=== PATIENT | female | born 1945 | race Caucasian/White ===

== ENCOUNTER → 2016-08-15 | Outpatient (CLI) | payer OTHER ==
[2016-08-15 09:51] LABS: BASOPHILS # (AUTO) 0.04 10*3/UL; BASOPHILS % (AUTO) 0.9 % (0-1); EOSINOPHILS % (AUTO) 2.9 % (0-8); HEMATOCRIT 41.7 % (37.0-47.0); HEMOGLOBIN 13.8 g/dL (12.0-16.0); IMM GRAN % (AUTO) 0.5 % (0-5); IMM GRAN# (AUTO) 0.02 10*3/UL; LYMPHOCYTES % (AUTO) 13.5 % (10-50); MEAN CORPUSCULAR HEMOGLOBIN 28.6 PG (27-31); MEAN CORPUSCULAR HGB CONC 33.1 g/dL (33-37); MEAN PLATELET VOLUME 9.2 FL (7.4-12.2); MONOCYTES # (AUTO) 0.26 10*3/UL (0.3-0.8); MONOCYTES % (AUTO) 5.9 % (5-15); NEUTROPHILS # (AUTO) 3.38 10*3/UL; NEUTROPHILS % (AUTO) 76.3 % (50-80); RDW COEFFICIENT OF VARIATION 15.5 % (11.5-14.5); RED BLOOD COUNT 4.82 10^6/uL (4.20-5.40); WHITE BLOOD COUNT 4.43 10^3/uL (4.8-10.8)
[2016-08-15 10:04] LABS: PLATELET MORPHOLOGY COMMENT NORMAL MORPHOLOGY (NORM)
[2016-08-15 10:39] LABS: ASPARTATE AMINO TRANSFERASE 26 IU/L (8-39); BILIRUBIN,TOTAL 0.8 mg/dL (0.3-1.2); BLOOD UREA NITROGEN 13 mg/dL (7-22); BUN/CREATININE RATIO 18.57 (6-20); CALCIUM 9.2 mg/dL (8.7-10.7); CHLORIDE 105 meq/L (98-112); CREATININE 0.7 mg/dL (0.50-1.20); GLUCOSE 88 mg/dL (78-110); POTASSIUM 4.6 meq/L (3.8-5.2); SODIUM 142 meq/L (135-145)
[2016-08-15 10:40] LABS: TOTAL PROTEIN 7.2 g/dL (6.1-8.0)
== END ==
LOC: LAB 09:30
PROVIDERS: ATTEND Internal Medicine
DX: C83.8 Other non-follicular lymphoma (principal)
CPT/HCPCS: 36415; 80053; 83615; 85025

== ENCOUNTER → 2016-11-09 | Outpatient (CLI) | payer OTHER | LOC: MMPC 09:00 | PROVIDERS: ATTEND Physician Assistant Medical | DX: H57.8 Other specified disorders of eye and adnexa (principal) | CPT/HCPCS: 99213; G0463 ==

== ENCOUNTER 2016-11-10 10:45 | Emergency (ER) | payer OTHER ==
[2016-11-10] MEDS ORDERED: Sodium Chloride 0.9% 1,000 ML PRIMARY IV ONE (11:01)
[2016-11-10] MEDS ORDERED: NORMAL SALINE 10 ML SYRINGE FLUSH IVP PRN (11:01)
[2016-11-10] MEDS ORDERED: ceFAZolin Inj 1gm (Premix) 1 GM in Dextrose 1 BAG IV ONE (11:06)
[2016-11-10] MEDS ORDERED: MORPHINE SULFATE 4 MG/1 ML IVP ONE (11:27)
[2016-11-10 11:45] LABS: HEMATOCRIT 38.5 % (37.0-47.0); HEMOGLOBIN 12.6 g/dL (12.0-16.0); MEAN CORPUSCULAR HEMOGLOBIN 28.4 PG (27-31); MEAN CORPUSCULAR HGB CONC 32.7 g/dL (33-37); MEAN CORPUSCULAR VOLUME 86.9 FL (81-99); MEAN PLATELET VOLUME 9.3 FL (7.4-12.2); RED BLOOD COUNT 4.43 10^6/uL (4.20-5.40)
[2016-11-10 11:54] VITALS: RESP 18; TEMP 98.1
[2016-11-10 11:55] LABS: BLOOD UREA NITROGEN 36 mg/dL (7-22); BUN/CREATININE RATIO 16.36 (6-20); CALCIUM 8.6 mg/dL (8.7-10.7); SERUM ALBUMIN 3.6 g/dL (3.5-4.8)
[2016-11-10 12:23] LABS: PLATELET MORPHOLOGY COMMENT SEE COMMENTS (NORM); RBC MORPHOLOGY COMMENT SEE COMMENTS (NORM); WBC MORPHOLOGY COMMENT SEE COMMENTS (NORM)
[2016-11-10 12:24] LABS: BAND NEUTROPHILS % 4 % (0-10); LYMPHOCYTES % (MANUAL) 73 % (10-50); MONOCYTES % (MANUAL) 21 % (0-12); NEUTROPHILS % (MANUAL) 0 % (50-80)
[2016-11-10 12:25] LABS: BASOPHILS % (MANUAL) 2 % (0-1); EOSINOPHILS % (MANUAL) 0 % (0-8); METAMYELOCYTES % 0 %; MYELOCYTES % 0 %; PROMYELOCYTES % 0 %
[2016-11-10] MEDS ORDERED: Ertapenem Inj 1 GM in Sodium Chloride 0.9% 100 ML IV ONE (12:34)
[2016-11-10] MEDS ORDERED: ONDANSETRON 4 MG/2 ML VIAL ONE (12:47)
--- NOTE | 2016-11-10 12:51 | DI ---
HISTORY: Right-sided periorbital cellulitis. Renal insufficiency. TECHNIQUE: Unenhanced images of the IAC/orbits were obtained and submitted for interpretation. FINDINGS: There is preseptal right periorbital soft tissue swelling. The right globe is intact. Th e extraocular muscles and optic nerve appear intact. The orbital fat is not effaced. The right supe rior pulmonary vein is slightly prominent. The paranasal sinuses are well-aerated. There is modest mucosal thickening. The mandible is intact. The mastoid air cells are well-aerated. The zygomatic arches, and pterygoid plates are intact. T here is no destructive osseous abnormalities. The left periorbital and orbit are grossly unremarkable. The visualized intracranial parenchyma appears grossly unremarkable. There is no orbital emphysema or orbital abscess. No specific evidence of endophthalmitis, although this is largely clinical. IMPRESSION: 1. Preseptal right periorbital soft tissue swelling. 2. Slightly prominent pulmonary vein. Correlation with contrast-enhanced images with attention to th e cavernous sinus is recommended.
[2016-11-10] MEDS ORDERED: ONDANSETRON 4 MG/2 ML VIAL IVP ONE (12:59)
[2016-11-10 13:06] LABS: VENOUS PH 7.32 (7.32-7.42)
--- NOTE | 2016-11-10 13:07 | PDOC ---
General Adult HPI - General Chief Complaint: Eye Problem / Injury Stated Complaint: reddness swelling right eye Date Seen by Provider: 11/10/16 Time Seen by Provider: 10:50 Source: POSITIVE: Patient, Spouse Exam Limitations: POSITIVE: No limitations Nurse's Notes Reviewed & Considered: Yes - History of Present Illness Initial Comment: , Approximately 2 days ago she scratched the lateral aspect of her face near the lateral canthus with her fingernail. She states that she fell recent quickly thereafter began to develop some right periorbital swelling. She went to the walk-in clinic yesterday and was seen by a physician educational program assistant, who prescribed Bactrim DS. Her condition continued to worsen. She states that yesterday she had a fever of 102. She is brought to the emergency room by private auto. Past medical history is significant in that she has a history of lymphoma, diagnosed approximately 2 years ago. She was taking chemotherapy up until this past March. Her oncologist is Dr. Child in [place].. She has a left subclavian port. Her right eye is almost swollen shut, but she does not complain of any ocular pain with eye movement. Have you received a tetanus shot in the past 10 years?: Unknown Body Location Affected: REPORTS: Face (Right side of face) Timing: REPORTS: Abrupt, Getting Worse Duration: >24 hours (Approximately 2-1/2 days [employer]) Severity: Moderate Quality: REPORTS: "Pain" (Over right side of face) Context: REPORTS: Recent Trauma (Had onset of illness she scratched her face on the right side near her lateral canthus) Modifying Factors: improves with: Palpation Similar Symptoms Previously: No Recent Care Received: REPORTS: Recently Seen, Treated by MD (Seen in walk-in clinic yesterday; prescribed Bactrim by mouth) Any Prior Injuries Related to Current Complaint?: Yes (scratched right side of face as above) - Patient Home Medications Home Medications: Home Medications Esomeprazole Magnesium [Nexium] 1 tab-cap ORAL DAILY #90 capsule 06/12/16 Furosemide 1 tab-cap PO DAILY PRN #60 tab 06/12/16 Gabapentin 1 cap PO ASDIR #240 cap 06/12/16 Meloxicam 1 tab PO DAILY #90 tab 06/12/16 Potassium Chloride [Klor-Con M20] 1 tab-cap PO QD PRN #60 tab 06/12/16 - Patient Allergies Allergies/Adverse Reactions: Allergies Allergy/AdvReac Type Severity Reaction Status Date / Time amoxicillin trihydrate Allergy HIVES Verified 11/10/16 11:54 [From Augmentin] Penicillins Allergy HIVES Verified 11/10/16 11:54 potassium clavulanate Allergy HIVES Verified 11/10/16 11:54 [From Augmentin] Past Medical History - heen HEENT History: Denies History Cardiovascular History: Denies History Respiratory History: Denies History Gastrointestinal History: Denies History Genitourinary History: Denies History Endocrine History: Denies History Musculoskeletal History: Arthritis Prosthesis or Implant: No Neurological History: Other (please comment) Additional Neurological History: FIBROMYALGIA Blood Disorders: Denies History Psychiatric History: Denies History History of Sexually Transmitted Diseases: No Cancer History: Denies History In Past Year Been Physically Harmed or Verbally Threatened: No History of MDRO: No History of Other Communicable Diseases: No Tobacco Use: Former Smoker Alcohol Use: Rarely Substance Use Type: None Previous Surgical History: Yes Type / Date of Surgery: R HYST, APPY, back surgery Anesthesia Reactions: No Malignant Hyperthermia: No Significant Family History: No pertinent family hx Past Medical History Reviewed: Reviewed - No Changes ROS - Limitations ROS Limitations: No Limitations Constitution: REPORTS: Fever (Last night according to patient) Cardiovascular: REPORTS: Denies Cardiac Symptoms Respiratory: REPORTS: Denies Resp Symptoms Neurological: REPORTS: Denies Neuro Symptoms Gastrointestinal: REPORTS: Denies GI Symptoms Endocrine: REPORTS: Denies Symptoms Musculoskeletal: REPORTS: Denies MS Symptoms Genitourinary: REPORTS: Denies Symptoms Eyes: REPORTS: Other (Periorbital swelling tenderness and redness) ENT: REPORTS: Denies Symptoms Skin: REPORTS: Other (Right periorbital cellulitis extending down face. Area of ecchymosis lateral aspect right upper eyelid) Lympathic: REPORTS: Denies Lympathic Symptoms Immunologic: POSITIVE: Denies Symptoms Psychiatric: POSITIVE: Denies Psych Symptoms General Adult Exam - General Appearance General Appearance: POSITIVE: Alert, Cooperative, No Acute Distress, No Evidence of Trauma - HEENT HEENT: POSITIVE: Head Inspection Nml, Eyes Inspection Nml, Ears Inspection Nml, Nose Inspection Nml, Oral/Dental Inspect. Nml, Pharynx Inspect. Nml, PERRL, EOMI , Other (Patient has prominent right periorbital swelling. Lids could be opened up enough to visualize the eye, however. Anterior chambers are clear. No apparent endophthalmitis. External ocular movements are intact. Some conjunctival erythema.) - Pupils Pupil Size: 3 mm: Bilateral (PERRLA) - Neck Neck: POSITIVE: Normal Inspection, Thyroid Normal - Respiratory Respiratory: POSITIVE: No Respiratory Distress, Breath Sounds Normal, Chest Non- Tender - Cardiovascular Cardiovascular: POSITIVE: Regular Rate & Rhythm, No Murmur, No Gallop, PMI Normal Peripheral Pulses: Radial (R): 2+, Radial (L): 2+ - Abdomen Abdomen: Soft: (All Quadrants), Normal Bowel Sounds: (All Quadrants), Denies Tenderness: (All Quadrants), No Splenomegaly: (All Quadrants), No Hepatomegaly: (All Quadrants), No Guarding: (All Quadrants), No Rebound: (All Quadrants), No Palpable Pulse: (All Quadrants), No Palpabale Mass: (All Quadrants), No Distention: (All Quadrants), No Rigidity: (All Quadrants) - Back Back: POSITIVE: Normal Inspection - Skin Skin: POSITIVE: Warmth, Erythema, Other (Patient has a prominent right periorbital and facial cellulitis.) - Extremities Extremity: Non-Tender: (All Extremities), Normal ROM: (All Extremities), Normal Inspection: (All Extremities) - Neurological / Psychological Neurological: 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 Lab Results Reviewed: Yes Lab Results:: Laboratory Results 11/10/16 Range/Units 11:28 WBC 1.11 L* (4.8-10.8) 10^3/uL RBC 4.43 (4.20-5.40) 10^6/uL Hgb 12.6 (12.0-16.0) g/dL Hct 38.5 (37.0-47.0) % MCV 86.9 (81-99) FL MCH 28.4 (27-31) PG MCHC 32.7 L (33-37) g/dL RDW Std Deviation 47.1 (39-50) fL RDW Coeff of Nina 14.9 H (11.5-14.5) % Plt Count 256 (140-350) 10*3/uL MPV 9.3 (7.4-12.2) FL Neutrophils % (Manual) 0 L (50-80) % Band Neutrophils % 4 (0-10) % Lymphocytes % (Manual) 73 H (10-50) % Monocytes % (Manual) 21 H (0-12) % Eosinophils % (Manual) 0 (0-8) % Basophils % (Manual) 2 H (0-1) % Metamyelocytes % 0 % Myelocytes % 0 % Promyelocytes % 0 % Blast Cells 0 (0-1) % WBC Morphology Comment See comments (NORM) Plt Morphology Comment See comments (NORM) RBC Morph Comment See comments (NORM) Sodium 134 L (135-145) meq/L Potassium 4.4 (3.8-5.2) meq/L Chloride 96 L (98-112) meq/L Carbon Dioxide 21 L (23-33) meq/L Anion Gap 17 (5-20) BUN 36 H (7-22) mg/dL Creatinine 2.2 H (0.50-1.20) mg/dL Estimated GFR [facility] Aid BUN/Creatinine Ratio 16.36 (6-20) Glucose 134 H (78-110) mg/dL Calculated Osmolality 287.0 (267-292) mOsm/kg Lactic Acid 4.4 H (0.70-2.10) MMOL/L Calcium 8.6 L (8.7-10.7) mg/dL Total Bilirubin 1.1 (0.3-1.2) mg/dL AST 12 (8-39) IU/L ALT 18 (9-52) IU/L Alkaline Phosphatase 81 (38-126) IU/L Total Protein 6.6 (6.1-8.0) g/dL Albumin 3.6 (3.5-4.8) g/dL Globulin 3.0 (2.50-4.10) g/dL Albumin/Globulin Ratio 1.20 L (1.3-2.0) mg/g - Patient's Progress Pain Medication Addressed: POSITIVE: Yes (Morphine 4 mg IV) School/Work Release Addressed: POSITIVE: Not Applicable Re-Examine Time: 12:05 Re-Examine Comment: Blood pressure 112/48 after liter of normal saline. Patient originally given a gram of Ancef IV after blood cultures were drawn; 1 g of Invanz ordered. Re-Examine Time:: 12:50 Re-Examine Comment: Case discussed with Dr. Blount, emergency physician at [facility] [place]. Patient to be transferred to that facility for further evaluation and treatment of sepsis, lymphoma and renal failure. Status: POSITIVE: Unchanged, Re-Examined Antibiotics Given: Yes (Ancef 1 g; Invanz 1 g.) - Consult Consult (If Yes, Name of Consulting MD & Time Called): Yes (, ER [facility] [place], ) Consulting MD will see pt:: POSITIVE: Recommended Transfer Counseled: POSITIVE: Patient, Family, RE: Lab Results, RE: Radiology Results, RE : DX, RE: Need for F/U Patient Care Time - Estimated PCT Patient Care Time (In Minutes): 62 Vital Signs - Recent Vital Signs Vital Signs: Vital Signs (Last 8 hours) Temp Pulse Resp BP Pulse Ox 11/10/16 10:51 98.1 F 91 18 97/42 97 - VS Reviewed Vital Signs Reviewed: Yes Discharge Clinical Impression: Sepsis, Periorbital cellulitis of right eye, Renal failure, Lymphoma Discharge Disposition: Transferred to Short Term Facility Condition: Fair Date Decision to Transfer to Another Facility: 11/10/16 Time Decision to Transfer to Another Facility: 12:30
[2016-11-10] MEDS ORDERED: Sodium Chloride 0.9% 1,000 ML ONE (18:03)
== END 2016-11-10 13:40 | disposition short-term general hospital (02) ==
LOC: ER 10:45
DX: L03.213 Periorbital cellulitis (principal); A41.9 Sepsis, unspecified organism; N19 Unspecified kidney failure; R50.9 Fever, unspecified
CPT/HCPCS: 36415; 70480; 80053; 82803; 83605; 85007; 96361; 96365; 96375; 99283; J0690; J1265; J1335; J2270; J2405; J7030; J7050

== ENCOUNTER → 2017-01-01 | Outpatient (CLI) | payer OTHER | LOC: MMPC 11:11 | PROVIDERS: ATTEND Internal Medicine | DX: G47.33 Obstructive sleep apnea (adult) (pediatric) (principal); K21.9 Gastro-esophageal reflux disease without esophagitis; L03.211 Cellulitis of face; E66.01 Morbid (severe) obesity due to excess calories; C85.89 Other specified types of non-Hodgkin lymphoma, extranodal and solid organ sites | CPT/HCPCS: 99214; G0463 ==

== ENCOUNTER → 2017-01-30 | Outpatient (CLI) | payer OTHER | LOC: MMPC 11:11 | PROVIDERS: ATTEND Internal Medicine | DX: M17.12 Unilateral primary osteoarthritis, left knee (principal); M17.11 Unilateral primary osteoarthritis, right knee; K21.9 Gastro-esophageal reflux disease without esophagitis; I10 Essential (primary) hypertension; E66.01 Morbid (severe) obesity due to excess calories | CPT/HCPCS: 99213; G0463 ==

== ENCOUNTER → 2017-02-06 | Outpatient (CLI) | payer OTHER ==
[2017-02-06 10:45] LABS: HEMATOCRIT 41.6 % (37.0-47.0); MEAN PLATELET VOLUME 9.8 FL (7.4-12.2)
[2017-02-06 10:52] LABS: BASOPHILS # (AUTO) 0.11 10*3/UL; BASOPHILS % (AUTO) 1.7 % (0-1); EOSINOPHILS # (AUTO) 0.11 10*3/UL; EOSINOPHILS % (AUTO) 1.7 % (0-8); HEMOGLOBIN 13.5 g/dL (12.0-16.0); LYMPHOCYTES # (AUTO) 0.71 10*3/uL; MEAN CORPUSCULAR HEMOGLOBIN 29.2 PG (27-31); MEAN CORPUSCULAR HGB CONC 32.5 g/dL (33-37); MEAN CORPUSCULAR VOLUME 89.8 FL (81-99); MONOCYTES # (AUTO) 0.36 10*3/UL (0.3-0.8); MONOCYTES % (AUTO) 5.6 % (5-15); NEUTROPHILS # (AUTO) 5.14 10*3/UL; NEUTROPHILS % (AUTO) 79.2 % (50-80); RED BLOOD COUNT 4.63 10^6/uL (4.20-5.40)
[2017-02-06 10:57] LABS: PLATELET MORPHOLOGY COMMENT NORMAL MORPHOLOGY (NORM); RBC MORPHOLOGY COMMENT NORMAL MORPHOLOGY (NORM); WBC MORPHOLOGY COMMENT NORMAL MORPHOLOGY (NORM)
[2017-02-06 11:36] LABS: BUN/CREATININE RATIO 15.55 (6-20); CALCIUM 9.1 mg/dL (8.7-10.7)
== END ==
LOC: LAB 10:27
PROVIDERS: ATTEND Internal Medicine
DX: C83.8 Other non-follicular lymphoma (principal)
CPT/HCPCS: 36415; 80053; 82784; 83615; 85025